=== PATIENT | female | born 1975 | race Caucasian/White ===

== ENCOUNTER 2016-04-27 12:35 | Emergency (ER) | payer MEDICAID ==
--- NOTE | 2016-04-27 13:00 | EDM.PDOC ---
ED HPI GENERAL MEDICAL PROBLEM - General Chief Complaint: Flank Pain Stated Complaint: right side pain Time Seen by Provider: 04/27/16 12:58 Source of Information: Reports: Patient History Limitations: Reports: No limitations - History of Present Illness INITIAL COMMENTS - FREE TEXT/NARRATIVE: in with c/o fever and chills x past few days, was recently seen and txed for an abscess to right axilla, also c/o cough and congestion with myalgia. no neck/ back pain or stiffness, no cp or sob, smoke 1/2 pack of cig a day for 15 years, no ear, nose or throat sx, no SOLO, neck/back pain or stiffness. Duration: Getting worse Quality: Reports: Ache Severity: mild Associated Symptoms: Reports: cough, cough w sputum, fever/chills. Denies: chest pain, nausea/vomiting, rash, seizure, shortness of breath, syncope, weakness Treatments PRECISE WINDER: Reports: Acetaminophen Right Flank Pain Score (Numeric/FACES): 8 - Related Data Allergies Allergy/AdvReac Type Severity Reaction Status Date / Time amoxicillin trihydrate Allergy Diarrhea Verified 04/27/16 12:36 [From Augmentin] potassium clavulanate Allergy Diarrhea Verified 04/27/16 12:36 [From Augmentin] Sulfa (Sulfonamide Allergy Rash Verified 04/27/16 12:36 Antibiotics) Home Meds: Home Meds Albuterol [Ventolin HFA] 2 puff INH DAILY PRN 02/21/14 [History] Cefuroxime [Ceftin] 250 mg PO BID 04/27/16 [History] Topiramate [Topamax] 100 mg PO BEDTIME 04/27/16 [History] Social & Family History - Family History Endocrine/Metabolic: Reports: Diabetes, type II Hematologic: Reports: Other (see below) (cancer) - Tobacco Use Smoking Status *Q: Current Every Day Smoker Years of Tobacco use: 15 - Alcohol Use Days Per Week of Alcohol Use: 2 Number of Drinks Per Day: 3 Total Drinks Per Week: 6 - Recreational Drug Use Recreational Drug Use: No - Living Situation & Occupation Living situation: Reports: , single, with family ED ROS GENERAL - Review of Systems Review Of Systems: See Below Constitutional: Reports: fever, chills HEENT: Reports: Sinus problem. Denies: Dental pain, Eye pain, Hearing loss, Nosebleed, Throat pain, Vision change Respiratory: Reports: cough, sputum. Denies: shortness of breath, wheezing Cardiovascular: Reports: No symptoms Endocrine: Reports: no symptoms GI/Abdominal: Reports: No symptoms. Denies: Abdominal pain, Nausea, Vomiting : Reports: no symptoms Musculoskeletal: Reports: muscle pain. Denies: neck pain, back pain Skin: Reports: no symptoms. Denies: rash Neurological: Reports: no symptoms. Denies: confusion, headache, trouble speaking, difficulty walking, weakness, change in speech, gait disturbance Psychiatric: Reports: No symptoms Hematologic/Lymphatic: Reports: no symptoms Immunologic: Reports: no symptoms ED EXAM, GENERAL - Physical Exam Exam: See Below Exam Limited By: No limitations General Appearance: alert, WD/WN, mild distress Ears: normal external exam, normal canal, hearing grossly normal, normal TMs Ear Exam: bilateral ear: auricle normal, canal normal, TM normal Nose: nasal drainage Throat/Mouth: Normal inspection, Normal lips, Normal gums, Normal oropharynx, Normal voice, No airway compromise Head: atraumatic Neck: normal inspection, supple, non-tender, full range of motion Respiratory/Chest: no respiratory distress, lungs clear, normal breath sounds, no accessory muscle use, chest non-tender Cardiovascular: normal peripheral pulses, regular rate, rhythm, no murmur Peripheral Pulses: 2+: radial (L), radial (R) GI/Abdominal: soft, non tender Back Exam: normal inspection, full range of motion. No: CVA tenderness (L), CVA tenderness (R) Extremities: normal inspection, normal range of motion, non-tender, no pedal edema, normal capillary refill Neurological: alert, oriented, normal cognition, normal gait, no motor/sensory deficits Psychiatric: normal affect, normal mood Skin Exam: Warm, Dry, Intact, Normal color, No rash, Other (has a closed incision without redness or swelling to right axilla) Lymphatic: no adenopathy Course - Vital Signs Last Recorded V/S: Last Vital Signs Temp 38.8 C H 04/27/16 14:36 Pulse 108 H 04/27/16 14:36 Resp 18 04/27/16 14:36 BP 114/66 04/27/16 14:36 Pulse Ox 98 04/27/16 14:36 - Orders/Labs/Meds Orders: Active Orders 24 hr Category Date Time Status Chest 2V [CR] Stat Exams 04/27/16 13:01 Taken CULTURE BLOOD [BC] Stat Lab 04/27/16 13:10 Received CULTURE BLOOD [BC] Stat Lab 04/27/16 13:15 Received Ketorolac [Toradol] Med 04/27/16 14:44 Once 30 mg IVPUSH ONETIME ONE cefTRIAXone [Rocephin] Med 04/27/16 14:44 Once 2 gm IVPUSH ONETIME ONE Blood Culture x2 Reflex Set [OM.PC] Stat Oth 04/27/16 13:01 Ordered Labs: Laboratory Tests 04/27/16 04/27/16 04/27/16 Range/Units 13:01 13:10 13:10 WBC 23.3 H* (5.0-10.0) 10^3/uL RBC 4.37 (4.00-5.50) 10^6/uL Hgb 13.6 (12.0-16.0) g/dL Hct 40.0 (37.0-47.0) % MCV 91.5 (82.0-94.0) fL MCH 31.1 (27.0-32.0) pg MCHC 34.0 (33.0-38.0) g/dL RDW Coeff of Rudi 13.1 (11.0-15.0) % Plt Count 249 (150-400) 10^3/uL Add Manual Diff Yes Neutrophils % (Manual) 91 H (35-85) % Lymphocytes % (Manual) 6 L (21-55) % Monocytes % (Manual) 3 (2-12) % Absolute Neutrophils 21.20 H (1.80-7.00) 10^3/uL Lymphocytes # (Manual) 1.40 (1.00-4.80) 10^3/uL Monocytes # (Manual) 0.70 (0.00-0.80) 10^3/uL Sodium 142 (136-145) mEq/L Potassium 3.9 (3.5-5.0) mEq/L Chloride 106 (98-106) mEq/L Carbon Dioxide 21 (21-32) mmol/L BUN 10 (7-18) mg/dL Creatinine 1.0 (0.6-1.0) mg/dL Est Cr Clr Drug Dosing 76.95 mL/min Estimated GFR (MDRD) > 60 (>=60) mL/min Glucose 102 H (75-99) mg/dL Lactic Acid (0.4-2.0) mmol/L Calcium 8.7 (8.4-10.1) mg/dL Total Bilirubin 0.5 (0.0-1.0) mg/dL AST 10 L (15-37) U/L ALT 20 (12-78) U/L Alkaline Phosphatase 60 (46-116) U/L C-Reactive Protein 2.5 H (0.2-0.8) mg/dL Total Protein 6.8 (6.4-8.2) g/dL Albumin 3.6 (3.4-5.0) g/dL Urine Color Yellow (YELLOW) Urine Appearance Clear (CLEAR) Urine pH 6.0 (4.5-8.0) Ur Specific [place] 1.016 (1.003-1.020) Urine Protein Negative (NEGATIVE) mg/dL Urine Glucose (UA) Negative (NEGATIVE) mg/dL Urine Ketones Negative (NEGATIVE) mg/dL Urine Occult Blood Negative (NEGATIVE) Urine Nitrite Negative (NEGATIVE) Urine Bilirubin Negative (NEGATIVE) Urine Urobilinogen 0.2 (0.2-1.0) EU/dL Ur Leukocyte Esterase Negative (NEGATIVE) Urine RBC Not seen (0-5) /HPF Urine WBC 0-5 (0-5) /HPF Ur Squamous Epith Cells Occasional H (NOT SEEN) /HPF Urine Mucus Occasional H (NOT SEEN) /HPF 04/27/16 Range/Units 13:15 WBC (5.0-10.0) 10^3/uL RBC (4.00-5.50) 10^6/uL Hgb (12.0-16.0) g/dL Hct (37.0-47.0) % MCV (82.0-94.0) fL MCH (27.0-32.0) pg MCHC (33.0-38.0) g/dL RDW Coeff of Rudi (11.0-15.0) % Plt Count (150-400) 10^3/uL Add Manual Diff Neutrophils % (Manual) (35-85) % Lymphocytes % (Manual) (21-55) % Monocytes % (Manual) (2-12) % Absolute Neutrophils (1.80-7.00) 10^3/uL Lymphocytes # (Manual) (1.00-4.80) 10^3/uL Monocytes # (Manual) (0.00-0.80) 10^3/uL Sodium (136-145) mEq/L Potassium (3.5-5.0) mEq/L Chloride (98-106) mEq/L Carbon Dioxide (21-32) mmol/L BUN (7-18) mg/dL Creatinine (0.6-1.0) mg/dL Est Cr Clr Drug Dosing mL/min Estimated GFR (MDRD) (>=60) mL/min Glucose (75-99) mg/dL Lactic Acid 1.9 (0.4-2.0) mmol/L Calcium (8.4-10.1) mg/dL Total Bilirubin (0.0-1.0) mg/dL AST (15-37) U/L ALT (12-78) U/L Alkaline Phosphatase (46-116) U/L C-Reactive Protein (0.2-0.8) mg/dL Total Protein (6.4-8.2) g/dL Albumin (3.4-5.0) g/dL Urine Color (YELLOW) Urine Appearance (CLEAR) Urine pH (4.5-8.0) Ur Specific [place] (1.003-1.020) Urine Protein (NEGATIVE) mg/dL Urine Glucose (UA) (NEGATIVE) mg/dL Urine Ketones (NEGATIVE) mg/dL Urine Occult Blood (NEGATIVE) Urine Nitrite (NEGATIVE) Urine Bilirubin (NEGATIVE) Urine Urobilinogen (0.2-1.0) EU/dL Ur Leukocyte Esterase (NEGATIVE) Urine RBC (0-5) /HPF Urine WBC (0-5) /HPF Ur Squamous Epith Cells (NOT SEEN) /HPF Urine Mucus (NOT SEEN) /HPF Meds: Medications Discontinued Medications Generic Name Dose Route Start Last Admin Trade Name Freq PRN Reason Stop Dose Admin Acetaminophen 650 mg 04/27/16 13:01 04/27/16 13:27 Tylenol PO 04/27/16 13:02 650 mg NOW ONE Administration Sodium Chloride 1,000 mls @ 1,000 mls/hr 04/27/16 13:01 04/27/16 13:28 Normal Saline IV 04/27/16 14:00 1,000 mls/hr .BOLUS ONE Administration - Radiology Interpretation Free Text/Narrative:: cxr neg Departure - Departure Time of Disposition: 14:47 Disposition: DC/Tfer to Acute Hospital 02 Condition: good Clinical Impression: FUO (fever of unknown origin), Bronchitis, Leukocytosis Instructions: Fever, Adult, [id number], Acute Bronchitis Forms: ED Department Discharge Additional Instructions: increase fluids alternate Tylenol and Motrin every 4 hours as needed for fever recheck in the ER in 24 hours to ER sooner if worse or problems - Problem List & Annotations (1) Bronchitis SNOMED Code(s): 16731033 Code(s): J40 - BRONCHITIS, NOT SPECIFIED ACUTE OR CHRONIC Status: Acute Priority: High Current Visit: Yes Onset Date: ~04/27/16 (2) FUO (fever of unknown origin) SNOMED Code(s): 8913733 Code(s): R50.9 - FEVER, UNSPECIFIED Status: Acute Priority: High Current Visit: Yes Onset Date: ~04/27/16 (3) Leukocytosis SNOMED Code(s): 620024425, 609471130 Code(s): D72.829 - ELEVATED WHITE BLOOD CELL COUNT, UNSPECIFIED Status: Acute Priority: High Current Visit: Yes Onset Date: ~04/27/16 Qualifiers: Leukocytosis type: unspecified Qualified Code(s): D72.829 - Elevated white blood cell count, unspecified - Problem List Review Problem List Initiated/Reviewed/Updated: Yes - My Orders Last 24 Hours: My Active Orders 04/27/16 13:01 Chest 2V [CR] Stat Blood Culture x2 Reflex Set [OM.PC] Stat 04/27/16 13:10 CULTURE BLOOD [BC] Stat 04/27/16 13:15 CULTURE BLOOD [BC] Stat 04/27/16 14:44 Ketorolac [Toradol] 30 mg IVPUSH ONETIME ONE cefTRIAXone [Rocephin] 2 gm IVPUSH ONETIME ONE - Assessment/Plan Last 24 Hours: My Active Orders 04/27/16 13:01 Chest 2V [CR] Stat Blood Culture x2 Reflex Set [OM.PC] Stat 04/27/16 13:10 CULTURE BLOOD [BC] Stat 04/27/16 13:15 CULTURE BLOOD [BC] Stat 04/27/16 14:44 Ketorolac [Toradol] 30 mg IVPUSH ONETIME ONE cefTRIAXone [Rocephin] 2 gm IVPUSH ONETIME ONE Assessment:: its unclear the pts source of infection/fever, abd soft and non tender with deep palpation, no flank pain on percussion bilaterally, flu neg, throat assessment is neg, neg urine, neg cxr. will give IV Rocephin and have pt return in 24 hours for a [id number] and to repeat labs and further tx based on that. see dc instructions
[2016-04-27] MEDS ORDERED: Acetaminophen 325 MG Tab PO ONE (13:01)
[2016-04-27] MEDS ORDERED: Sodium Chloride 0.9% 1,000 ML IV ONE (13:01)
[2016-04-27 13:38] LABS: CHLORIDE,CL 106 mEq/L (98-106); SODIUM,NA 142 mEq/L (136-145)
[2016-04-27 14:39] VITALS: BP 114/66
[2016-04-27] MEDS ORDERED: cefTRIAXone 2 GM Vial IVPUSH ONE (14:44)
[2016-04-27] MEDS ORDERED: Ketorolac 30 MG/ML SDV IVPUSH ONE ×2 (14:44→16:19)
[2016-04-27] MEDS: Sodium Chloride 0.9% 1,000 ML ONE ×2 (15:05→15:11)
[2016-04-27] MEDS ORDERED: Sodium Chloride 0.9% 1,000 ML ONE (15:43)
[2016-04-27] MEDS ORDERED: Ibuprofen 200 MG Tab PO ONE (16:20)
== END 2016-04-27 16:40 | disposition home or self-care (01) ==
LOC: CC.ED 12:35
DX: J40 Bronchitis, not specified as acute or chronic (principal); D72.829 Elevated white blood cell count, unspecified; F17.210 Nicotine dependence, cigarettes, uncomplicated; Z88.1 Allergy status to other antibiotic agents; Z88.2 Allergy status to sulfonamides; Z88.8 Allergy status to other drugs, medicaments and biological substances
CPT/HCPCS: 36415; 71020; 80053; 81001; 82270; 83605; 85025; 86140; 87040; 87493; 87804; 89055; 96365; 96366; 96375; 96376; 99283; A9270; J0696; J1885; J7030; 96361; 96374

== ENCOUNTER 2018-01-19 03:50 | Observation (INO) | payer OTHER, SELFPAY ==
[2018-01-19 07:26] LABS: CHLORIDE,CL 110 mEq/L (98-106); SODIUM,NA 144 mEq/L (136-145)
[2018-01-20 08:19] LABS: CHLORIDE,CL 110 mEq/L (98-106); SODIUM,NA 143 mEq/L (136-145)
[2018-01-21 07:26] LABS: CHLORIDE,CL 110 mEq/L (98-106); SODIUM,NA 143 mEq/L (136-145)
== END 2018-01-21 10:25 | disposition home or self-care (01) ==
LOC: UNDOADMOB 03:50 → CC.MS 03:50 → UNDOADMOB 13:04 → CC.MS 13:04 → UNDODISOB 01-21 10:25
PROVIDERS: ADMIT Nurse Practitioner Family; ATTEND Family Medicine
DX: N30.90 Cystitis, unspecified without hematuria (principal); B96.20 Unspecified Escherichia coli [E. coli] as the cause of diseases classified elsewhere; J45.909 Unspecified asthma, uncomplicated; E66.9 Obesity, unspecified; Z88.1 Allergy status to other antibiotic agents; Z88.2 Allergy status to sulfonamides
CPT/HCPCS: 36415; 80048; 80053; 83735; 84132; 85025; 86140; 87086; 87088; 87186; 87493; 96361; 96365; 96366; 96367; 96368; 96375; 96376; A9270-GY; G0378; J1956; J2185; J2405; J3370; J3475; J3480; J7030; J7040

== ENCOUNTER 2024-03-02 16:21 | Emergency (ER) | payer BC ==
[2024-03-02 16:39] VITALS: BP 132/79; PULSE 84
[2024-03-02] MEDS: Alum Hydrox/Mag Hydrox/Simeth 30 ML, Lidocaine 2% 15 ML PO ONE (16:50)
== END 2024-03-02 17:13 | disposition home or self-care (01) ==
LOC: CC.ED 16:21
DX: K21.9 Gastro-esophageal reflux disease without esophagitis (principal); J45.909 Unspecified asthma, uncomplicated; E66.9 Obesity, unspecified; Z90.89 Acquired absence of other organs; Z88.0 Allergy status to penicillin; Z88.2 Allergy status to sulfonamides; Z88.8 Allergy status to other drugs, medicaments and biological substances; Z79.899 Other long term (current) drug therapy
CPT/HCPCS: 99283; A9270